=== PATIENT | male | born 1940 | race African-American/Black ===

== ENCOUNTER 2024-09-27 10:49 | Emergency (ER) | payer MEDICARE ==
[2024-09-27] MEDS ORDERED: Iopamidol 370 76% 100 ML VIAL ONE (11:49)
[2024-09-27 12:02] LABS: Hematocrit 31.3 % (38.8-50.0); Hemoglobin 9.9 g/dL (13.5-17.5); Mean Corpuscular Hemoglobin 22.2 pg (27.0-33.0); Mean Corpuscular Volume 70.3 fL (81.2-95.1); Red Blood Cell (RBC) Count 4.45 10x6/uL (4.32-5.72); White Blood Cell (WBC) Count 3.42 10x3/uL (3.5-10.5)
[2024-09-27 12:06] LABS: ALT (SGPT) 16 U/L (Less than 45); AST (SGOT) 68 U/L (11-34); Albumin 3.2 g/dL (3.1-4.5); Alkaline Phosphatase 95 U/L (40-110); Anion Gap 12 mmol/L (10-20); BUN (Urea Nitrogen) 15 mg/dL (8.4-25.7); Bilirubin, Total 0.4 mg/dL (0.3-1.2); Calc. Creatinine Clearance 0 mL/min (70-130); Calcium 9.9 mg/dL (7.8-10.44); Carbon Dioxide 24 mmol/L (23-31); Chloride 98 mmol/L (98-107); Globulin 3.4 g/dL (2.4-3.5); Glucose 113 mg/dL (83-110); Magnesium 1.9 mg/dL (1.6-2.6); Potassium 3.3 mmol/L (3.5-5.1); Sodium 131 mmol/L (136-145)
[2024-09-27 12:10] LABS: Platelet Count 73 10x3/uL (150-450)
[2024-09-27] MEDS ORDERED: Cefepime 2 GM VIAL ONE ×2 (12:17→20:50)
[2024-09-27 12:20] LABS: Crenated RBC SLIGHT = 1-5 cells (100X) (None Seen); MDiff Complete? YES; Microcytosis SLIGHT = 6-15 cells (100X) (0-5/hpf); Ovalocytes SLIGHT = 2-5 cells (100X) (0-1/hpf); Platelet Adequacy Comment Appears Decreased
[2024-09-27] MEDS ORDERED: VANCOMYCIN 1.75 GM/350 ML BAG 1.75 GM in Premix 1 BAG IVPB SCH (12:30)
[2024-09-27 13:32] LABS: Actual Bicarbonate (HCO3v) 23.5 mEq/L (22-28); Analyzer IN Cardio CS ER; Base Excess -1.2 mEq/L (-2 - +2); Calcium, Ionized (venous) 1.23 mmol/L (1.16-1.32); Chloride (VBG) 99 mmol/L (98-106); Critical Notified By: Udy, RRT; Critical Notified Whom: McKenzie, RN; Hematocrit-VBG 33 % (42.0-52.0); Hemoglobin (Hb) 11.2 g/dL (12.6-17.4); Potassium (VBG) 3.53 mmol/L (3.70-5.30); Puncture Site Other Site; RapidComm Collect By LAB; Sodium 132 mmol/L (133-146)
[2024-09-27 14:36] LABS: Glucose, Urine (Dipstick) Normal (Negative); Leukocyte 25 (Negative); Protein, Urine (Dipstick) 30 mg/dl (Neg-Trace); Specific Gravity, Urine 1.020 (1.005-1.030)
[2024-09-27 14:44] LABS: CAUTI Indications for Culture Alt mental st,lethar
[2024-09-27 14:45] LABS: Bacteria/HPF 1+ HPF (None Seen)
[2024-09-27 14:46] LABS: Urine Culture Reflex No No
[2024-09-27] MEDS ORDERED: Potassium Chloride 40 MEQ in Sodium Chloride 0.9% 250 ML 250 ML IVPB SCH (18:00)
[2024-09-27] MEDS ORDERED: Metoprolol Tartrate 5 MG (5 mL) VIAL ONE (18:57)
== END 2024-09-27 20:56 | disposition short-term general hospital (02) ==
LOC: CSHERS 10:49
DX: A41.9 Sepsis, unspecified organism (principal); R41.82 Altered mental status, unspecified; I48.91 Unspecified atrial fibrillation; J18.9 Pneumonia, unspecified organism; N39.0 Urinary tract infection, site not specified; I10 Essential (primary) hypertension; E11.9 Type 2 diabetes mellitus without complications; F17.210 Nicotine dependence, cigarettes, uncomplicated; I25.10 Atherosclerotic heart disease of native coronary artery without angina pectoris; E78.00 Pure hypercholesterolemia, unspecified
CPT/HCPCS: 70450; 71045; 71275; 72125; 80053; 81001; 82805; 82962; 83605; 83735; 85025; 87040; 87086; 93005; 94760; J0692; J3375; J3480; J7050; Q9967; 36416; 96365; 96375